=== PATIENT | female | born 1995 | race African-American/Black ===

== ENCOUNTER 2016-11-10 00:53 | Emergency (ER) | payer MEDICAID, OTHER ==
[~2016-11-10] VITALS: Ht 165.1 cm; Wt 122.6 kg
[2016-11-10 00:56] VITALS: BP 114/65
--- NOTE | 2016-11-10 01:09 | NUR ---
Patient ambulated to bed 02.
--- NOTE | 2016-11-10 02:00 | NUR ---
21 YEAR OLD FEMALE CAME IN WITH ABDOMINAL PAIN. ER MD AWARE. 26 WEEKS VERBALIZED. INITIAL ASSESSMENT AND VITAL SIGNS DONE.
--- NOTE | 2016-11-10 02:29 | NUR ---
Patient discharged with v/s stable. Written and verbal after care instructions given and explained. Patient verbalized understanding. Ambulatory with steady gait. All questions addressed prior to discharge. Advised to follow up with PMD. RX WITH MACROBID CAPSULE AND [facility] VITAMINS WITH MINERALS TABLETS GIVEN.
[2016-11-10 02:30] VITALS: BP 115/78
== END 2016-11-10 02:29 | disposition home or self-care (01) ==
LOC: MED 00:53
DX: O23.42 Unspecified infection of urinary tract in pregnancy, second trimester (principal); Z3A.26 26 weeks gestation of pregnancy; Z88.8 Allergy status to other drugs, medicaments and biological substances
CPT/HCPCS: 36415; 76805; 80053; 81001; 81025; 84443; 85025; 87086; 99285; Q0092

== ENCOUNTER 2017-04-12 21:00 | Emergency (ER) | payer MEDICAID ==
[~2017-04-12] VITALS: Ht 165.1 cm; Wt 119.3 kg
[2017-04-12 21:44] VITALS: BP 142/80
--- NOTE | 2017-04-12 23:36 | NUR ---
Patient to OF.
--- NOTE | 2017-04-12 23:53 | NUR ---
PT BIB FAMILY C/O SORE THROAT X2 DAYS. PT DENIES ANY MEDICAL HX. PT DENIES N/V/D; SKIN IS INTACT, PINK/WARM/DRY; AAOX4, PERRL, WITH EVEN AND STEADY GAIT; LUNGS-LOW BILAT LOBE CORSE, BREATHING UNLABORED; HR EVEN AND REGULAR, BL PERIPHERAL PULSES PRESENT; BS ACTIVE X4, NO TENDERNESS TO PALPATION, NO HEPATOSPLENOMEGALLY PALPATED, RESONANT TO PERCUSSION; PT DENIES ANY FEVER, CP, SOB AT THIS TIME; PT STATES 10/10 PAIN AT THIS TIME; VSS; PATIENT POSITIONED FOR COMFORT; HOB ELEVATED; BEDRAILS UP X2; BED DOWN.
--- NOTE | 2017-04-13 00:20 | NUR ---
Dr. El evaluating patient.
[2017-04-13 00:40] VITALS: BP 139/75
--- NOTE | 2017-04-13 00:55 | NUR ---
Patient discharged with v/s stable. Written and verbal after care instructions given and explained. Patient alert, oriented and verbalized understanding of instructions. Ambulatory with steady gait. All questions addressed prior to discharge. ID band removed. Patient advised to follow up with PMD. Rx of IBUPROFEN 600MG TID PRN, AUGMENTIN 875MG BID given. Patient educated on indication of medication including possible reaction and side effects. Opportunity to ask questions provided and answered.
== END 2017-04-13 00:55 | disposition home or self-care (01) ==
LOC: MED 21:00
DX: J02.9 Acute pharyngitis, unspecified (principal); R03.0 Elevated blood-pressure reading, without diagnosis of hypertension; Z88.8 Allergy status to other drugs, medicaments and biological substances
CPT/HCPCS: 87081; 99284